=== PATIENT | female | born 1960 | race Caucasian/White ===

== ENCOUNTER 2018-08-01 12:58 | Emergency (ER) | payer MEDICAID ==
[~2018-08-01] VITALS: Ht 157.5 cm; Wt 68.0 kg
[2018-08-01 13:06] VITALS: BP_SYST 141
[2018-08-01] MEDS ORDERED: TRIAMCINOLONE ACETONIDE 40 MG/ML IM ONE (14:00)
[2018-08-01 14:11] VITALS: BP_SYST 139
== END 2018-08-01 14:12 | disposition home or self-care (01) ==
LOC: SED 12:58
DX: L25.9 Unspecified contact dermatitis, unspecified cause (principal); R03.0 Elevated blood-pressure reading, without diagnosis of hypertension
CPT/HCPCS: 96372; 99283; J3301

== ENCOUNTER 2018-11-04 06:55 | Emergency (ER) | payer MEDICAID ==
[~2018-11-04] VITALS: Ht 157.5 cm; Wt 64.9 kg
[2018-11-04 07:02] VITALS: BP_SYST 130
[2018-11-04 07:35] VITALS: BP_SYST 130
== END 2018-11-04 07:35 | disposition home or self-care (01) ==
LOC: SED 06:55
DX: J20.9 Acute bronchitis, unspecified (principal)
CPT/HCPCS: 99283